=== PATIENT | male | born 1980 | race Caucasian/White ===

== ENCOUNTER 2016-11-28 07:37 | Emergency (ER) | payer OTHER ==
[~2016-11-28] VITALS: Ht 177.8 cm; Wt 74.8 kg
[2016-11-28] MEDS: predniSONE 10 MG TABLET PO ONE (08:00)
[2016-11-28] MEDS: diphenhydrAMINE 50 MG CAPSULE PO ONE (08:00)
[2016-11-28] MEDS ORDERED: predniSONE 10 MG TABLET ONE (08:09)
[2016-11-28] MEDS ORDERED: diphenhydrAMINE 50 MG CAPSULE ONE (08:10)
[2016-11-28] MEDS ORDERED: predniSONE 50 MG TABLET ONE (08:10)
--- NOTE | 2016-11-28 08:15 | NUR ---
Pt resting, appears comfortable, no s/s of acute distress noted.
--- NOTE | 2016-11-28 09:32 | NUR ---
Patient discharged to home in stable conditon with family. Written and verbal after care instructions given. Patient verbalizes understanding of instructions. Stressed follow up with pmd or return to ER for worsening s/s.
== END 2016-11-28 09:34 | disposition home or self-care (01) ==
LOC: ER 07:37
DX: R21 Rash and other nonspecific skin eruption (principal); R22.9 Localized swelling, mass and lump, unspecified; T78.40XA Allergy, unspecified, initial encounter; Z91.018 Allergy to other foods; X58.XXXA Exposure to other specified factors, initial encounter
CPT/HCPCS: A4663; J7512; Q0163